=== PATIENT | male | born 1955 | race Caucasian/White ===

== ENCOUNTER 2024-01-02 12:08 | Emergency (ER) | payer MEDICARE, BC ==
[~2024-01-02] VITALS: Ht 170.2 cm; Wt 93.0 kg
[2024-01-02 12:24] VITALS: TEMP 98.2
[2024-01-02] MEDS ORDERED: SULF1TAB49 PO (14:42)
[2024-01-02] MEDS ORDERED: MUPI22OI30 TOP (14:42)
[2024-01-02] MEDS ORDERED: CHLO118L3 TOP (14:42)
[2024-01-02 15:25] VITALS: BP 129/73; PULSE 54; RESP 16; O2SAT 96
== END 2024-01-02 15:26 | disposition home or self-care (01) ==
LOC: ER 12:09
DX: N49.2 Inflammatory disorders of scrotum (principal); L08.9 Local infection of the skin and subcutaneous tissue, unspecified
CPT/HCPCS: 99283

== ENCOUNTER 2024-01-11 07:31 | Emergency (ER) | payer MEDICARE, BC ==
[~2024-01-11] VITALS: Ht 170.2 cm; Wt 90.2 kg
[~2024-01-11 07:31] MED LIST: CHLO118L3 TOP; MUPI22OI30 TOP; SULF1TAB49 PO
[2024-01-11] MEDS ORDERED: ATOR-2 PO (09:10)
[2024-01-11] MEDS ORDERED: SULF1TAB45 PO (09:10)
[2024-01-11] MEDS: TETanus/Pertussis (Acell)/Diphther VAC/PF (Tdap-Adult) 0.5ml syringe IMVAC ONE (09:22)
[2024-01-11] MEDS ORDERED: SULF1TAB49 PO (09:23)
[2024-01-11] MEDS: LIDOcaine 1% W/epiNEPHrine 1:100,000 20ml vial IJ ONE (09:46)
[2024-01-11 10:22] VITALS: BP 111/69; PULSE 55; RESP 16; TEMP 98.1; O2SAT 96
[2024-01-13] MEDS ORDERED: DOXY100C43 PO (07:47)
== END 2024-01-11 10:20 | disposition home or self-care (01) ==
LOC: ER 07:32
DX: L02.412 Cutaneous abscess of left axilla (principal); Z79.899 Other long term (current) drug therapy; Z79.2 Long term (current) use of antibiotics
CPT/HCPCS: 10060; 87070; 87077; 87186; 90715; 99283; G0008; 90471

== ENCOUNTER 2024-03-24 11:04 | Emergency (ER) | payer MEDICARE, BC ==
[~2024-03-24] VITALS: Ht 170.2 cm; Wt 91.2 kg
[~2024-03-24 11:04] MED LIST changes: +ATOR-2 PO; -MUPI22OI30 TOP; +SULF1TAB45 PO; -SULF1TAB49 PO
[2024-03-24 11:28] VITALS: BP 152/86; PULSE 66; RESP 18; TEMP 98.1; O2SAT 97
== END 2024-03-24 12:25 | disposition left against medical advice (07) ==
LOC: ER 11:04
DX: R11.0 Nausea (principal); R53.83 Other fatigue; R53.1 Weakness; Z53.21 Procedure and treatment not carried out due to patient leaving prior to being seen by health care provider
CPT/HCPCS: J7030

== ENCOUNTER 2024-03-24 15:22 | Emergency (ER) | payer MEDICARE, BC ==
[~2024-03-24] VITALS: Ht 170.2 cm; Wt 91.7 kg
[2024-03-24 16:23] LABS: BASOPHILS % (AUTO) 0.5 % (0-1); EOSINOPHILS # (AUTO) 0.1 X10'3 (0-0.9); EOSINOPHILS % (AUTO) 0.7 % (0-6); HEMATOCRIT 48.2 % (42.0-52.0); HEMOGLOBIN 15.9 g/dl (14.0-17.9); LYMPHOCYTES # (AUTO) 1.6 X10'3 (1.1-4.8); LYMPHOCYTES % (AUTO) 20.8 % (21-51); MEAN CORPUSCULAR HEMOGLOBIN 31.1 PG (27.0-31.0); MEAN CORPUSCULAR HGB CONC 33.1 g/dL (33.0-36.5); MEAN PLATELET VOLUME 7.7 FL (7.4-10.4); MONOCYTES # (AUTO) 0.5 X10'3 (0-0.9); MONOCYTES % (AUTO) 7.1 % (2-12); NEUTROPHILS # (AUTO) 5.4 X10'3 (1.8-7.7); NEUTROPHILS % (AUTO) 70.9 % (42-75); PLATELET COUNT 255 X10'3 (140-440); RED BLOOD COUNT 5.12 X10'6 (4.70-6.10); RED CELL DISTRIBUTION WIDTH 13.4 % (11.5-14.5); WHITE BLOOD COUNT 7.7 X10'3 (4.5-11.0)
[2024-03-24 16:30] VITALS: BP 144/87; PULSE 64; TEMP 97.8; O2SAT 97
[2024-03-24 16:47] LABS: ALANINE AMINOTRANSFERASE 43 U/L (12-78); ALBUMIN/GLOBULIN RATIO 1.3 (1.1-1.5); ALKALINE PHOSPHATASE 104 IU/L (46-116); ANION GAP 8 (8-16); ASPARTATE AMINO TRANSFERASE 25 U/L (10-37); BILIRUBIN,TOTAL 0.5 MG/DL (0.1-1.0); BLOOD UREA NITROGEN 16 MG/DL (7-18); BUN/CREATININE RATIO 14.8 (10.0-20.0); CALCIUM 9.7 MG/DL (8.5-10.1); CHLORIDE 106 MMOL/L (99-107); CREATININE 1.08 MG/DL (0.60-1.10); GLUCOSE 145 MG/DL (70-104); POTASSIUM 4.4 MMOL/L (3.5-5.1); SODIUM 143 MMOL/L (135-145); TOTAL CARBON DIOXIDE 29.4 MMOL/L (24-32); TOTAL PROTEIN 7.2 G/DL (6.4-8.2); eCRCL 62 ML/MIN; eGFR 68 ML/MIN
[2024-03-24 16:51] LABS: PRO BRAIN NATRIURETIC PEPTIDE 103 PG/ML (0-125)
[2024-03-24 18:21] VITALS: RESP 18
== END 2024-03-24 18:23 | disposition home or self-care (01) ==
LOC: ER 15:22
DX: R07.89 Other chest pain (principal); R53.1 Weakness; Z79.899 Other long term (current) drug therapy; Z79.2 Long term (current) use of antibiotics
CPT/HCPCS: 36415; 71045; 80053; 83880; 84484; 85025; 93005; 99285